=== PATIENT | male | born 1960 | race Two or more races ===

== ENCOUNTER 2024-08-10 12:28 | Inpatient (IN) | payer MEDICAID, OTHER ==
[~2024-08-10] VITALS: Ht 179.1 cm; Wt 100.4 kg
--- NOTE | 2024-08-10 12:39 | ED.PDOC ---
GI ASSESSMENT HPI Comments This is a 63 year old male BIBA presenting to the ED with chief complaint of appendicitis. EMS reports patient is being transferred from [facility] after he had been complaining of abdominal pain for 8 days. EMS relays that an CT Abd/Pel with IV contrast was performed, indicating "acute appendicitis with inflammation and no abscess." EMS states patient was given Zosyn IV in the hospital, patient's WBC was 12.5, and EKG showed sinus bradycardia at 41, but patient normally has a low resting heart rate. Patient notes that he currently has 5/10 left sided abdominal pain at this time. Patient denies any N/V/D, dizziness, fever, chills, or chest pain. Time Seen by MD: 12:34 Reviewed Notes: Nurses Notes, Card Decorator Notes, Medications, Allergies Allergies: Coded Allergies: NO KNOWN ALLERGIES (Unverified , 08/10/24) Information Source: Patient, Emergency Med Personnel Mode of Arrival: EMS Timing: Days Duration: Since onset Prehospital treatment: IVF Quality: Aching Vomitus: None Stool: Normal Severity: Moderate Recent: None Recent Hx of: None Pain Location: LUQ Modifying Factors: Nothing Associated sign and symptoms: Abdominal Pain Past Medical History PAST MEDICAL HISTORY: Denies Surgical History: Denies all surgeries Family History Family History: Reviewed,noncontributory to illness Social History Smoker: Non-Smoker Alcohol: Occasionally Drugs: Denies Drug Use Lives In: Home Constitutional: denies: chills, diaphoresis, fatigue, fever, malaise, sweats, weakness, others EENTM: denies: blurred vision, double vision, ear bleeding, ear discharge, ear drainage, ear pain, ear ringing, eye pain, eye redness, hearing loss, mouth pain, mouth swelling, nasal discharge, nose bleeding, nose congestion, nose pain, photophobia, tearing, throat pain, throat swelling, voice changes, others Respiratory: denies: cough, hemoptysis, orthopnea, SOB at rest, shortness of breath, SOB with excertion, stridor, wheezing, others Cardiovascular: denies: chest pain, dizzy spells, diaphoresis, Dyspnea on exertion, edema, irregular heart beat, left arm pain, lightheadedness, palpitations, PND, syncope, others Gastrointestinal: reports: abdominal pain; denies: abdomen distended, blood streaked bowels, constipated, diarrhea, dysphagia, difficulty swallowing, hematemesis, melena, nausea, poor appetite, poor fluid intake, rectal bleeding, rectal pain, vomiting, others Genitourinary: denies: burning, dysuria, flank pain, frequency, hematuria, incontinence, penile discharge, penile sore, pain, testicle pain, testicle swelling, urgency, others Neurological: denies: dizziness, fainting, headache, left sided numbness, left sided weakness, numbness, paresthesia, pre-existing deficit, right sided numbness, right sided weakness, seizure, speech problems, tingling, tremors, weakness, others Musculoskeletal: denies: back pain, gout, joint pain, joint swelling, muscle pain, muscle stiffness, neck pain, others Integumetry: denies: bruises, change in color, change in hair/nails, dryness, laceration, lesions, lumps, rash, wounds, others Allergic/Immunocompromised: denies: Difficulty Healing, Frequent Infections, Hives, Itching, others Hematologic/Lymphatic: denies: anemia, blood clots, easy bleeding, easy bruising, swollen glands, others Endocrine: denies: excessive hunger, excessive sweating, excessive thirst, excessive urination, flushing, intolerance to cold, intolerance to heat, unexplained weight gain, unexplained weight loss, others Psychiatric: denies: anxiety, bipolar disorder, depression, hopeless, panic disorder, schizophrenia, sleepless, suicidal, others All Other Systems: Reviewed and Negative Physical Exam General Appearance: Moderate Distress HEENT: Normal ENT Inspection, Pharynx Normal, TMs Normal Neck: Full Range of Motion, Non-Tender, Normal, Normal Inspection Respiratory: Chest Non-Tender, Lungs Clear, No Accessory Muscle Use, No Respiratory Distress, Normal Breath Sounds Cardiovascular: No Edema, No JVD, No Murmur, No Gallop, Normal Peripheral Pulses, Regular Rate/Rhythm Breast Exam: Deferred Gastrointestinal: LLQ, No Organomegaly, No Pulsatile Mass, Normal Bowel Sounds, RLQ, Soft, Tenderness Genitalia: Deferred Pelvic: Deferred Rectal: Deferred Extremities: No calf tenderness, Normal capillary refill, Normal inspection, Normal range of motion, Non-tender, No pedal edema Musculoskeletal : Apperance: Normal Neurologic: Alert, 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 Was a procedure done?: No GI differential Dx Differential Diagnosis: Appendicitis, Gastritis/PUD, Electrolyte Imbalance X-Ray, Labs, Meds, VS Vital Signs Date Time Temp Pulse Resp B/P (MAP) Pulse Ox O2 Delivery O2 Flow Rate FiO2 08/10/24 12:36 98.5 41 16 142/91 (108) 96 98.5 Lab Test 08/10/24 13:31 Range/Units White Blood Count 9.2 4.4-10.8 10^3/uL Red Blood Count 5.25 4.5-5.90 10^6/uL Hemoglobin 17.1 13.5-17.5 g/dL Hematocrit 48.8 41.0-53.0 % Mean Corpuscular Volume 92.9 80.0-100.0 fL Mean Corpuscular Hemoglobin 32.5 H 28.0-32.0 pg Mean Corpuscular Hemoglobin Concent 35.0 32.0-36.0 g/dL Red Cell Distribution Width 13.7 11.8-14.3 % Platelet Count 252 140-450 10^3/uL Mean Platelet Volume 8.3 6.9-10.8 fL Neutrophils (%) (Auto) 66.7 37.0-80.0 % Lymphocytes (%) (Auto) 25.0 10.0-50.0 % Monocytes (%) (Auto) 6.1 0.0-12.0 % Eosinophils (%) (Auto) 1.4 0.0-7.0 % Basophils (%) (Auto) 0.8 0.0-2.0 % Neutrophils # (Auto) 6.1 1.6-8.6 10 ^3/uL Lymphocytes # (Auto) 2.3 0.4-5.4 10 ^3/uL Monocytes # (Auto) 0.6 0-1.3 10 ^3/uL Eosinophils # (Auto) 0.1 0-0.8 10 ^3/uL Basophils # (Auto) 0.1 0-0.2 10 ^3/uL Nucleated Red Blood Cells 0.0 % Prothrombin Time 11.5 9.3-11.8 sec Prothrombin Time INR 1.09 0.9-1.15 Activated Partial Thromboplast Time 29.1 24.5-34.5 SEC Sodium Level 143 136-145 mmol/L Potassium Level 4.1 3.5-5.1 mmol/L Chloride Level 107 98-107 mmol/L Carbon Dioxide Level 28 20-31 mmol/L Anion Gap 8 5-15 Blood Urea Nitrogen 16 9-23 mg/dL Creatinine 1.13 0.700-1.30 mg/dL Glomerular Filtration Rate Calc 73 >90 mL/min BUN/Creatinine Ratio 14.2 10.0-20.0 Serum Glucose 83 74-106 mg/dL Calcium Level 9.0 8.7-10.4 mg/dL Current Medications Medications (Trade) Dose Ordered Sig/Mira Route Start Time Stop Time Status Last Admin Sodium Chloride 1,000 ml @ 1,000 mls/hr Q1H ONCE IV 08/10/24 12:45 08/10/24 13:44 DC 08/10/24 14:12 The CBC is within normal limits The chemistry panel is within normal limits The IV Hep-Lock was established The patient was given a 1 L bolus of normal saline The patient had a CAT scan done yesterday which shows acute appendicitis The patient is being started on another dose of Zosyn IV piggyback At this time, we did speak with the surgeon on-call and the patient will be admitted and evaluated for surgery We did discuss the findings with the patient and he is in agreement with the management The patient is admitted Images Reviewed?: Images reviewed and evaluated by me Time of 1ST Reevaluation: 14:36 Reevaluation 1ST: Unchanged Patient Education/Counseling: Diagnosis, Treatment, Prognosis Family Education/Counseling: No Family Present Additional Information Reviewed patient's previous visit(s): None The following tests were ordered, and results were reviewed by me: CBC, BMP, PTPTT Additional information was gathered from interviewing the following independent historian: EMS I reviewed and agreed with the following test results read by other provider: None I discussed treatments and results with medical personnel and: PATIENT Comprehensive systems review obtained and negative except for what is stated in the HPI. SEPSIS Sepsis Screen Physician Orders Npo (Nothing By Mouth) Diet (08/10/24 Lunch) Heplock Iv (08/10/24 ) Vital Signs Date Time Temp Pulse Resp B/P (MAP) Pulse Ox O2 Delivery O2 Flow Rate FiO2 08/10/24 12:36 98.5 41 16 142/91 (108) 96 98.5 Laboratory Tests Test 08/10/24 13:31 White Blood Count 9.2 10^3/uL (4.4-10.8) Medications Medications Dose Ordered Sig/Mira Route Start Time Stop Time Status Last Admin Dose Admin Sodium Chloride 1,000 ml @ 1,000 mls/hr Q1H ONCE IV 08/10/24 12:45 08/10/24 13:44 DC 08/10/24 14:12 Departure 1 Departure Time of Disposition: 14:35 Impression: Primary Impression: Acute abdominal pain Additional Impression: Acute appendicitis Qualified Codes: K35.80 - Unspecified acute appendicitis Disposition: ADMITTED INPATIENT Admit to: Med Surg Condition: Fair Critical Care Note Critical Care Time?: No Stability Stability form required: Yes Unstable for transfer: ED Physician Assesment (Clinical assesment) Heart Score Heart Score: Heart Score Response (Comments) Value History N/A 0 EKG N/A 0 Age N/A 0 Risk Factors N/A 0 Troponin N/A 0 Total 0 I personally scribed for REYNALDO SPARROW MD ([email or web address]) on 08/10/24 at 12:39. Electronically submitted by Dennis Lubin ([email or web address]). I personally scribed for REYNALDO SPARROW MD ([email or web address]) on 08/10/24 at 12:44. Electronically submitted by Dennis Lubin ([email or web address]). REYNALDO SPARROW MD Aug 10, 2024 12:39
[2024-08-10 13:47] LABS: Basophils # (auto) 0.1 10 ^3/uL (0-0.2); Basophils % (auto) 0.8 % (0.0-2.0); Eosinophils # (auto) 0.1 10 ^3/uL (0-0.8); Eosinophils % (auto) 1.4 % (0.0-7.0); Hematocrit 48.8 % (41.0-53.0); Hemoglobin 17.1 g/dL (13.5-17.5); Lymphocytes # (auto) 2.3 10 ^3/uL (0.4-5.4); Mean Corpuscular Hemoglobin 32.5 pg (28.0-32.0); Mean Corpuscular Volume 92.9 fL (80.0-100.0); Monocytes # (auto) 0.6 10 ^3/uL (0-1.3); Monocytes % (auto) 6.1 % (0.0-12.0); Neutrophils # (auto) 6.1 10 ^3/uL (1.6-8.6); Neutrophils % (auto) 66.7 % (37.0-80.0); Platelet Count (auto) 252 10^3/uL (140-450); Red Blood Cells 5.25 10^6/uL (4.5-5.90); Red Cell Distribution Width 13.7 % (11.8-14.3); White Blood Cell 9.2 10^3/uL (4.4-10.8)
[2024-08-10 14:05] LABS: Chloride 107 mmol/L (98-107); INR 1.09 (0.9-1.15); Partial Thromboplastin Time 29.1 SEC (24.5-34.5); Potassium 4.1 mmol/L (3.5-5.1); Prothrombin Time 11.5 sec (9.3-11.8); Sodium 143 mmol/L (136-145)
[2024-08-10 14:06] LABS: Anion Gap 8 (5-15); Carbon Dioxide 28 mmol/L (20-31)
[2024-08-10 14:11] LABS: BUN/Creatinine Ratio 14.2 (10.0-20.0); Blood Urea Nitrogen 16 mg/dL (9-23); Glucose 83 mg/dL (74-106)
[2024-08-10] MEDS: SODIUM CHLORIDE 0.9% 1,000 ML IV ONE (14:12)
[2024-08-10 15:39] LABS: Basophils # (auto) 0 10 ^3/uL (0-0.2); Basophils % (auto) 0.6 % (0.0-2.0); Eosinophils # (auto) 0.1 10 ^3/uL (0-0.8); Eosinophils % (auto) 1.1 % (0.0-7.0); Hematocrit 47.8 % (41.0-53.0); Hemoglobin 16.3 g/dL (13.5-17.5); Lymphocytes # (auto) 1.8 10 ^3/uL (0.4-5.4); Lymphocytes % (auto) 21.5 % (10.0-50.0); Mean Corpuscular Hemoglobin 31.9 pg (28.0-32.0); Mean Corpuscular Hgb Conc. 34.1 g/dL (32.0-36.0); Mean Corpuscular Volume 93.8 fL (80.0-100.0); Monocytes # (auto) 0.5 10 ^3/uL (0-1.3); Neutrophils # (auto) 5.8 10 ^3/uL (1.6-8.6); Neutrophils % (auto) 70.8 % (37.0-80.0); Nucleated Red Blood Cells % 0.1 %; Platelet Count (auto) 231 10^3/uL (140-450); Red Cell Distribution Width 13.3 % (11.8-14.3); White Blood Cell 8.3 10^3/uL (4.4-10.8)
[2024-08-10 15:54] LABS: INR 1.09 (0.9-1.15); Partial Thromboplastin Time 30.2 SEC (24.5-34.5); Prothrombin Time 11.5 sec (9.3-11.8)
[2024-08-10 16:02] LABS: Alanine Aminotransferase 11 U/L (7-40); Alkaline Phosphatase 74 U/L (46-116); Anion Gap 10 (5-15); Aspartate Aminotransferase 17 U/L (<34); BUN/Creatinine Ratio 16.5 (10.0-20.0); Blood Urea Nitrogen 17 mg/dL (9-23); Calcium 8.8 mg/dL (8.7-10.4); Carbon Dioxide 23 mmol/L (20-31); Glucose 76 mg/dL (74-106); Potassium 4.2 mmol/L (3.5-5.1); Sodium 144 mmol/L (136-145); Total Protein 6.6 g/dL (5.7-8.2)
[2024-08-10 16:03] LABS: Bilirubin, Total 0.6 mg/dL (0.2-1.0); Chloride 111 mmol/L (98-107)
--- NOTE | 2024-08-10 16:37 | DVH ---
CHEST RADIOGRAPH Indication: pre op Technique: Single frontal view of the chest was obtained Comparison: None FINDINGS: Lines and Tubes: None Lungs: No focal consolidation. Pleura: No effusion. No pneumothorax. Cardiomediastinal contours: Unremarkable Bones: No acute osseous abnormality. IMPRESSION: 1. No acute cardiopulmonary disease.
--- NOTE | 2024-08-10 16:39 | DVH ---
Exam: CT CT AB PEL WITH IV CON ONLY History: abdominal pain COMPARISON: None Technique: Multidetector spiral CT of the abdomen and pelvis was performed from lung bases to pubic s ymphysis. Intravenous contrast was administered during this examination. Portal venous imaging was obtained. Axial, coronal and sagittal multiplanar reformats were performed by the technologist on a separate workstation. Radiation Dose : 1. Abdomen/Pelvis: CTDIvol 13.27mGy, DLP 793.59 mGy*cm. CONTRAST: Type of contrast: Omnipaque 300 Contrast injected: 100 ml Findings: Lung Bases: No pneumonia. 1.3 cm mass is seen in the left lower lobe. Liver: The liver is normal in size. No focal lesions. Normal hepatic vascular enhancement. Gallbladder and Biliary Tree: Unremarkable Spleen: Unremarkable Pancreas: The pancreas is normal in appearance without focal lesions or abnormal enhancement. Adrenal Glands: Unremarkable Kidneys: No hydronephrosis. Bladder: Unremarkable Bowel: The stomach is grossly normal in appearance. Small bowel and colon are normal in caliber and d istribution. Normal appendix is visualized in the right lower quadrant without findings of appendici tis. Ascites: Absent Lymphadenopathy: No mesenteric, retroperitoneal or periportal lymphadenopathy. Abdominal Wall and Mesentery: Unremarkable. Vasculature: The visualized abdominal aorta is normal in size and caliber. Abdominal and pelvic vess els demonstrate normal enhancement. Pelvic Organs: Unremarkable Musculoskeletal: No aggressive focal bony lesions, acute fractures or dislocation. IMPRESSION: 1. No acute abdominal or pelvic finding. 2. 1.3 cm mass is seen in the left lower lobe. Recommend noncontrast chest CT for further evaluation Radiation optimization: All CT scans at this facility use at least one of these dose optimization eddie hniques: automated exposure control mA and/or kV adjustment per patient size (includes targeted exam s where dose is matched to clinical indication) or iterative reconstruction.
[2024-08-10] MEDS ORDERED: MORPHINE SULFATE INJ 2 MG/ml SYRG IV PRN ×2 (16:45)
[2024-08-10] MEDS ORDERED: NITROGLYCERIN 0.4 MG SL TAB SL PRN (16:45)
[2024-08-10] MEDS ORDERED: ACETAMINOPHEN 325 MG TAB PO PRN (16:45)
[2024-08-10] MEDS ORDERED: ONDANSETRON HCL 4 MG/2 ML VIAL IV PRN (16:45)
--- NOTE | 2024-08-10 16:49 | DVHHP2 ---
History of Present Illness Reason for Visit: Acute abdominal pain History of Present Illness The patient is a 63-year-old male who denies past medical history presented to [facility] ED with complaint of acute abdominal pain. As reported by EMS, patient was transferred from [facility] after he had been complaining of abdominal pain for 8 days. EMS reports that he had abdomen/pelvis CT with IV contrast done at the facility with impression indicating acute appendicitis with inflammation and no abscess and was treated with antibiotic regimen Zosyn IV. Patient was seen and evaluated in the ED, laboratory data shows WBC 9.2, platelets 252, sodium 143, potassium 4.1, BUN 16, creatinine 1.13, glucose 73, calcium 9.0, PT 11.5, INR 1.09, PTT 30.2, blood pressure 142/91, heart rate 42, temperature 98.5 F, O2 saturation 96% on room air. Abdomen/pelvis CT revealing normal appendix visualized in the right lower quadrant without findings of appendicitis, 1.3 cm mass is seen in the left lower lobe. Recommending noncontrast chest CT. Please see medication orders section in the computer. On my assessment, patient denied chest pain, no headache, no dizziness, no shortness of breath, no diarrhea, no nausea, no vomiting, no fever, no chills. Patient was admitted for further evaluation and medical management. Past Medical History Denies past medical history Past Surgical History Denies all surgeries Past Social History The patient lives at home, denies smoking, alcohol or illicit drugs abuse. Review of Systems Constitutional: No: Fever, Chills, Sweats, Weakness, Malaise, Other Eyes: No: Pain, Vision change, Conjunctivae inflammation, Eyelid inflammation, Other, Redness ENT: No: Ear pain, Ear discharge, Nose pain, Nose discharge, Nose congestion, Mouth pain, Mouth swelling, Throat pain, Throat swelling, Other Respiratory: No: Cough, Dry, Shortness of breath, SOB with excertion, Wheezing, Hemoptysis, Pleuritic Pain, Sputum, Wheezing, Other Cardiovascular: No: Chest Pain, Palpitations, Orthopnea, Paroxysmal Noc. Dys pnea, Edema, Lt Headedness, Other Gastrointestinal: Abdominal Pain; No: Nausea, Vomiting, Diarrhea, Constipation, Melena, Hematochezia, Other Genitourinary: No Dysuria, No Frequency, No Incontinence, No Hematuria, No Retention, No Other Musculoskeletal: No: other, neck pain, shoulder pain, arm pain, back pain, hand pain, leg pain, foot pain Skin: No: Rash, Lesions, Jaundice, Bruising, Other Neurological: No: Weakness, Numbness, Incoordination, Change in speech, Confusion, Seizures, Other Allergies: Coded Allergies: NO KNOWN ALLERGIES (Unverified , 08/10/24) Exam Vital Signs Vital Signs Date Time Temp Pulse Resp B/P (MAP) Pulse Ox O2 Delivery O2 Flow Rate FiO2 08/10/24 12:36 98.5 41 16 142/91 (108) 96 98.5 General Appearance: Alert, Oriented X3, Cooperative, No acute distress HEENT: Atraumatic, PERRLA, EOMI, Mucous membr. moist/pink Respiratory: Normal air movement Cardiovascular: Regular rate, Normal S1, Normal S2, No murmurs Abdominal: Normal bowel sounds, Soft, No tenderness, No hepatospenomegaly, No masses Extremities: No clubbing, No cyanosis, No edema, Normal pulses, No tenderness/swelling Skin: No rashes, No breakdown, No significant lesion Neuro: Normal gait, Normal speech, Strength at 5/5 X4 ext, Normal tone, Sensation intact, Cranial nerves 3-12 NL, Reflexes 2+ Psych/Mental Status: Mental status NL, Mood NL Labs/Xrays Labs Test 08/10/24 15:25 Range/Units White Blood Count 8.3 4.4-10.8 10^3/uL Red Blood Count 5.10 4.5-5.90 10^6/uL Hemoglobin 16.3 13.5-17.5 g/dL Hematocrit 47.8 41.0-53.0 % Mean Corpuscular Volume 93.8 80.0-100.0 fL Mean Corpuscular Hemoglobin 31.9 28.0-32.0 pg Mean Corpuscular Hemoglobin Concent 34.1 32.0-36.0 g/dL Red Cell Distribution Width 13.3 11.8-14.3 % Platelet Count 231 140-450 10^3/uL Mean Platelet Volume 8.2 6.9-10.8 fL Neutrophils (%) (Auto) 70.8 37.0-80.0 % Lymphocytes (%) (Auto) 21.5 10.0-50.0 % Monocytes (%) (Auto) 6.0 0.0-12.0 % Eosinophils (%) (Auto) 1.1 0.0-7.0 % Basophils (%) (Auto) 0.6 0.0-2.0 % Neutrophils # (Auto) 5.8 1.6-8.6 10 ^3/uL Lymphocytes # (Auto) 1.8 0.4-5.4 10 ^3/uL Monocytes # (Auto) 0.5 0-1.3 10 ^3/uL Eosinophils # (Auto) 0.1 0-0.8 10 ^3/uL Basophils # (Auto) 0 0-0.2 10 ^3/uL Nucleated Red Blood Cells 0.1 % Prothrombin Time 11.5 9.3-11.8 sec Prothrombin Time INR 1.09 0.9-1.15 Activated Partial Thromboplast Time 30.2 24.5-34.5 SEC Sodium Level 144 136-145 mmol/L Potassium Level 4.2 3.5-5.1 mmol/L Chloride Level 111 H 98-107 mmol/L Carbon Dioxide Level 23 20-31 mmol/L Anion Gap 10 5-15 Blood Urea Nitrogen 17 9-23 mg/dL Creatinine 1.03 0.700-1.30 mg/dL Glomerular Filtration Rate Calc 81 >90 mL/min BUN/Creatinine Ratio 16.5 10.0-20.0 Serum Glucose 76 74-106 mg/dL Calcium Level 8.8 8.7-10.4 mg/dL Total Bilirubin 0.6 0.2-1.0 mg/dL Aspartate Amino Transferase (AST) 17 <34 U/L Alanine Aminotransferase (ALT) 11 7-40 U/L Alkaline Phosphatase 74 46-116 U/L Total Protein 6.6 5.7-8.2 g/dL Albumin 4.0 3.2-4.8 g/dL PATIENT: Judson Goins ACCT: [id number] UNIT: [id number] : 1960 LOC: ER ROOM / BED: / AGE / SEX: 63 / M ADM STATUS: REG ER SERVICE [id number] ORDERING PHYSICIAN: ERICH AZUL MD PROCEDURE(s): ABPLIV - CT AB PEL WITH IV CON ONLY REASON: abdominal pain ORDER NUMBER(s): [id number], ACCESSION NUMBER(s): [id number] Exam: CT CT AB PEL WITH IV CON ONLY History: abdominal pain COMPARISON: None Technique: Multidetector spiral CT of the abdomen and pelvis was performed from lung bases to pubic symphysis. Intravenous contrast was administered during this examination. Portal venous imaging was obtained. Axial, coronal and sagittal multiplanar reformats were performed by the technologist on a separate workstation. Radiation Dose: 1. Abdomen/Pelvis: CTDIvol 13.27mGy, DLP 793.59 mGy*cm. CONTRAST: Type of contrast: Omnipaque 300 Contrast injected: 100 ml Findings: Lung Bases: No pneumonia. 1.3 cm mass is seen in the left lower lobe. Liver: The liver is normal in size. No focal lesions. Normal hepatic vascular enhancement. Gallbladder and Biliary Tree: Unremarkable Spleen: Unremarkable Pancreas: The pancreas is normal in appearance without focal lesions or abnormal enhancement. Adrenal Glands: Unremarkable Kidneys: No hydronephrosis. Bladder: Unremarkable Bowel: The stomach is grossly normal in appearance. Small bowel and colon are normal in caliber and distribution. Normal appendix is visualized in the right lower quadrant without findings of appendicitis. Ascites: Absent Lymphadenopathy: No mesenteric, retroperitoneal or periportal lymphadenopathy. Abdominal Wall and Mesentery: Unremarkable. Vasculature: The visualized abdominal aorta is normal in size and caliber. Abdominal and pelvic vessels demonstrate normal enhancement. Pelvic Organs: Unremarkable Musculoskeletal: No aggressive focal bony lesions, acute fractures or dislocation. IMPRESSION: 1. No acute abdominal or pelvic finding. 2. 1.3 cm mass is seen in the left lower lobe. Recommend noncontrast chest CT for further evaluation ORDERING PHYSICIAN: ERICH AZUL MD PROCEDURE(s): CXRP - CHEST PORTABLE REASON: pre op ORDER NUMBER(s): [id number], ACCESSION NUMBER(s): [id number] CHEST RADIOGRAPH Indication: pre op Technique: Single frontal view of the chest was obtained Comparison: None FINDINGS: Lines and Tubes: None Lungs: No focal consolidation. Pleura: No effusion. No pneumothorax. Cardiomediastinal contours: Unremarkable Bones: No acute osseous abnormality. IMPRESSION: 1. No acute cardiopulmonary disease. Assessment/Plan Assessment/Plan Acute abdominal pain Generalized weakness Plan 1. Admit to [facility] session eats 2. Breathing treatment 3. Pain control management 4. Management of fluids and electrolytes 5. Consultation for hospitalist 6. Diagnostic tests abdomen/pelvis CT 7. DVT prophylaxis on SCDs 8. Repeat labs CBC, CMP in a.m. 9. Continue with current medical management 10. Treatment plan discussed with patient and RN. Patient verbalized ria albarran. Plan discussed with: Patient, Other (RN) My Orders Orders - RUI YOUNG DNP Procedure Category Date Status Time * Surgical Consult CONS 08/10/24 Transmitted Admit ADMIT 08/10/24 Transmitted 16:45 Allergies HOANG 08/10/24 Transmitted 16:45 Code Status CODE 08/10/24 Transmitted 16:45 Oxygen Per Hour RT 08/10/24 Transmitted 16:45 Hydrocodone-Acet PHA 08/10/24 Transmitted 5/325mg Tab ([place] 16:45 Ondansetron Hcl PHA 08/10/24 Transmitted (Zofran) 16:45 Complete Blood Count LAB 08/11/24 Verified 04:00 Comprehensive LAB 08/11/24 Verified Metabolic Panel 04:00 Condition: Serious HOANG 08/10/24 Transmitted 16:45 Acetaminophen Tablet PHA 08/10/24 Transmitted (Tylenol Tablet) 16:45 Bedrest With Bathroom HOANG 08/10/24 Transmitted Privileg 16:45 Morphine Sulfate PHA 08/10/24 Transmitted Injection 16:45 Sequential HOANG 08/10/24 Transmitted Compression Device Nitroglycerin PHA 08/10/24 Transmitted Sublingual (Ntrostat 16:45 Morphine Sulfate PHA 08/10/24 Transmitted Injection 16:45 Stat Ekg For Chest [facility] 08/10/24 Transmitted Pain 16:45 Notify Md Of Changes [facility] 08/10/24 Transmitted From Base 16:45 Oxygen Furnace Operator For [facility] 08/10/24 Transmitted 24 Hours 16:45 Emergency Dysrhythmia [facility] 08/10/24 Transmitted Protocol 16:45 Rhythm Strips Once [facility] 08/10/24 Transmitted Every Shift 16:45 Oxygen By Nasal RT 08/10/24 Transmitted Cannula 16:45 D5w/Sod Chl 0.45% 1/2 PHA 08/10/24 Transmitted NS 16:45 Problem List: (1) Acute abdominal pain (2) Generalized weakness Date of Service: Aug 10, 2024 Billing Provider: RUI YOUNG DNP Common Visit Codes: 23093-DFRHPTO INP/OBS CARE (MOD) RUI YOUNG DNP Aug 10, 2024 16:49
[2024-08-10 20:03] VITALS: PULSE 85; RESP 18; O2SAT 98
[2024-08-10] MEDS ORDERED: IBUP-1455 PO (20:15)
--- NOTE | 2024-08-10 20:33 | DVH ---
CT CHEST WITHOUT CONTRAST: INDICATION: Lung mass COMPARISON: None CONTRAST: IV contrast: None TECHNIQUE: Spiral CT performed from the pulmonary apex to the base. Dose reduction technique was used on this scan by utilizing automated exposure control, adjustment of the mA and/or kV according to the patient size. DICOM format image data available to non-affiliated external healthcare facilities or entities on a secure, media free, reciprocally searchable basis wit h patient authorization for at least a 12 month period after the study. FINDINGS: Community Product Specialist: Unremarkable There is a 1.9x 1.8 cm ovoid- branching lesion within the left lower lobe. No additional lesions iden tified. There is minimal bronchial wall thickening.. Thyroid gland and thoracic inlet are within normal limits. No enlarged intrathoracic lymph nodes. Mil d bilateral chamber enlargement. Small hiatal hernia. Vicarious excretion of contrast into the gallbladder. There is contrast material within the renal collecting system. The bones are unremarkable. IMPRESSION: 1. 1.9 cm oval- branching lesion within the left lower lobe favored to represent mucoid impaction. Ne oplasm is not excluded. Recommend follow-up chest CT in 8 weeks.
[2024-08-10 21:19] VITALS: BP 154/69; PULSE 40; RESP 18; TEMP 98.1; O2SAT 96
[2024-08-10 22:20] VITALS: BP 164/98; PULSE 47; RESP 19; TEMP 98.4; O2SAT 96
[2024-08-11] VITALS (8 sets, daily range): BP systolic 119–160; BP diastolic 66–95; PULSE 42–60; RESP 17–20; TEMP 97.7–98.4; O2SAT 93–98
[2024-08-11] MEDS: hydrALAZINE HCL 20 MG/ML VL IV ONE (01:29)
[2024-08-11] MEDS: D5W/SOD CHL 0.45% 1,000 ML IV SCH (05:18)
[2024-08-11 06:03] LABS: Basophils # (auto) 0.1 10 ^3/uL (0-0.2); Basophils % (auto) 0.5 % (0.0-2.0); Eosinophils # (auto) 0.2 10 ^3/uL (0-0.8); Eosinophils % (auto) 1.8 % (0.0-7.0); Hemoglobin 16.6 g/dL (13.5-17.5); Lymphocytes # (auto) 2.2 10 ^3/uL (0.4-5.4); Lymphocytes % (auto) 20.9 % (10.0-50.0); Mean Corpuscular Hemoglobin 32.2 pg (28.0-32.0); Mean Corpuscular Hgb Conc. 34.6 g/dL (32.0-36.0); Monocytes # (auto) 0.6 10 ^3/uL (0-1.3); Monocytes % (auto) 6.1 % (0.0-12.0); Neutrophils # (auto) 7.3 10 ^3/uL (1.6-8.6); Neutrophils % (auto) 70.7 % (37.0-80.0); Nucleated Red Blood Cells % 0.2 %; Platelet Count (auto) 236 10^3/uL (140-450); Red Blood Cells 5.16 10^6/uL (4.5-5.90); Red Cell Distribution Width 13.5 % (11.8-14.3); White Blood Cell 10.3 10^3/uL (4.4-10.8)
[2024-08-11 06:21] LABS: Alanine Aminotransferase 10 U/L (7-40); Albumin 3.9 g/dL (3.2-4.8); Alkaline Phosphatase 75 U/L (46-116); Anion Gap 9 (5-15); Aspartate Aminotransferase 17 U/L (<34); BUN/Creatinine Ratio 13.3 (10.0-20.0); Bilirubin, Total 0.7 mg/dL (0.2-1.0); Blood Urea Nitrogen 13 mg/dL (9-23); Calcium 8.8 mg/dL (8.7-10.4); Carbon Dioxide 23 mmol/L (20-31); Glucose 77 mg/dL (74-106); Sodium 140 mmol/L (136-145); Total Protein 6.7 g/dL (5.7-8.2)
[2024-08-11 06:24] LABS: Chloride 108 mmol/L (98-107)
[2024-08-11] MEDS ORDERED: PROPOFOL 10 MG/ML 20 ML IV ONE (06:52)
[2024-08-11] MEDS ORDERED: GLYCOPYRROLATE 0.2 MG/ML 1ML VIAL ONE (06:52)
[2024-08-11] MEDS ORDERED: ROCURONIUM 10MG/ML 10ML VIAL IV ONE (06:52)
[2024-08-11] MEDS ORDERED: LIDOCAINE 2% (LOCAL ANESTH.) PF 5ml SDV ONE (06:53)
[2024-08-11] MEDS ORDERED: SUGAMMADEX 200mg/2ml Vial (100MG/ML) IV ONE (06:53)
[2024-08-11] MEDS ORDERED: DexAMETHasone SOD PHOS 10MG/1ML VIAL INJ ONE (06:53)
[2024-08-11] MEDS ORDERED: ONDANSETRON HCL 4 MG/2 ML VIAL ONE (06:53)
[2024-08-11] MEDS ORDERED: KETOROLAC TROMETH 30 MG/ML 1ML VIAL ONE (06:53)
[2024-08-11] MEDS ORDERED: fentaNYL CITRATE 100 MCG/2 ML VL ONE (06:55)
[2024-08-11] MEDS ORDERED: KETAMINE 50mg/ML 1ml syringe ONE (06:55)
[2024-08-11] MEDS ORDERED: MIDAZOLAM HCL 2MG/2ML 2ml VIAL (1mg/ml) ONE (07:07)
[2024-08-11] MEDS: ceFAZolin 2 GM/D5W50ml 50 ML IV ONE (07:30)
[2024-08-11] MEDS ORDERED: HYDROmorphone HCL 2 MG/ML VL/or syr ONE (07:39)
--- NOTE | 2024-08-11 07:40 | DVHINCON2 ---
Date of service: Aug 11, 2024 Family History: Patient reports no known family medical history. Allergies: Coded Allergies: NO KNOWN ALLERGIES (Unverified , 08/10/24) Home Meds Reported Medications Ibuprofen Micronized (Ibuprofen) 800 Mg Tab, 1 TAB PO DAILYPRN PRN for pain 08/10/24 Current Medications Current Medications Medications (Trade) Dose Ordered Sig/Mira Route PRN Reason Start Time Stop Time Status Last Admin Acetaminophen/ Hydrocodone Bitart ([place] 5/325MG Tab) 1 tab Q4HP PRN PO MODERATE PAIN (4-6 PAIN SCALE) 08/10/24 16:45 Ondansetron HCl (Zofran) 4 mg Q4HP PRN IV NAUSEA / VOMITING 08/10/24 16:45 Acetaminophen (Tylenol Tablet) 650 mg Q6HP PRN PO PAIN SCALE 1-3 OR TEMP>100.4 08/10/24 16:45 Morphine Sulfate 2 mg Q4HPRN PRN IV SEVERE PAIN (7-10 PAIN SCALE) 08/10/24 16:45 Nitroglycerin (Ntrostat Sublingual) 0.4 mg Q5MINP PRN SL FOR CHEST PAIN 08/10/24 16:45 Morphine Sulfate 2 mg Q30M PRN IV FOR CHEST PAIN 08/10/24 16:45 Dextrose/Sodium Chloride 1,000 ml @ 75 mls/hr [id number] IV 08/10/24 16:45 08/11/24 06:05 Tamsulosin HCl (Flomax) 0.4 mg QPM PO 08/11/24 18:00 Vital Signs Vital Signs Date Time Temp Pulse Resp B/P (MAP) Pulse Ox O2 Delivery O2 Flow Rate FiO2 08/11/24 05:00 98.1 54 20 135/70 (91) 97 98.1 08/10/24 20:03 Room Air* 0 21 Labs/Diagnostic Data Labs Test 08/11/24 05:27 08/10/24 15:25 Range/Units White Blood Count 10.3 4.4-10.8 10^3/uL Red Blood Count 5.16 4.5-5.90 10^6/uL Hemoglobin 16.6 13.5-17.5 g/dL Hematocrit 48.0 41.0-53.0 % Mean Corpuscular Volume 93.0 80.0-100.0 fL Mean Corpuscular Hemoglobin 32.2 H 28.0-32.0 pg Mean Corpuscular Hemoglobin Concent 34.6 32.0-36.0 g/dL Red Cell Distribution Width 13.5 11.8-14.3 % Platelet Count 236 140-450 10^3/uL Mean Platelet Volume 8.2 6.9-10.8 fL Neutrophils (%) (Auto) 70.7 37.0-80.0 % Lymphocytes (%) (Auto) 20.9 10.0-50.0 % Monocytes (%) (Auto) 6.1 0.0-12.0 % Eosinophils (%) (Auto) 1.8 0.0-7.0 % Basophils (%) (Auto) 0.5 0.0-2.0 % Neutrophils # (Auto) 7.3 1.6-8.6 10 ^3/uL Lymphocytes # (Auto) 2.2 0.4-5.4 10 ^3/uL Monocytes # (Auto) 0.6 0-1.3 10 ^3/uL Eosinophils # (Auto) 0.2 0-0.8 10 ^3/uL Basophils # (Auto) 0.1 0-0.2 10 ^3/uL Nucleated Red Blood Cells 0.2 % Sodium Level 140 136-145 mmol/L Potassium Level 4.0 3.5-5.1 mmol/L Chloride Level 108 H 98-107 mmol/L Carbon Dioxide Level 23 20-31 mmol/L Anion Gap 9 5-15 Blood Urea Nitrogen 13 9-23 mg/dL Creatinine 0.98 0.700-1.30 mg/dL Glomerular Filtration Rate Calc 86 >90 mL/min BUN/Creatinine Ratio 13.3 10.0-20.0 Serum Glucose 77 74-106 mg/dL Calcium Level 8.8 8.7-10.4 mg/dL Total Bilirubin 0.7 0.2-1.0 mg/dL Aspartate Amino Transferase (AST) 17 <34 U/L Alanine Aminotransferase (ALT) 10 7-40 U/L Alkaline Phosphatase 75 46-116 U/L Total Protein 6.7 5.7-8.2 g/dL Albumin 3.9 3.2-4.8 g/dL Prothrombin Time 11.5 9.3-11.8 sec Prothrombin Time INR 1.09 0.9-1.15 Activated Partial Thromboplast Time 30.2 24.5-34.5 SEC Assessment PATIENT EVALUATED IN THE EMERGENCY ROOM YESTERDAY AND RE EVALUATED THIS AM, HE WAS REF. FROM ANOTHER HOSPITAL AND BROUGHT IN BY AMBULANCE WITH C/O SEVERE ABDOMINAL PAIN IN THE RIGHT SIDE OF HIS ABDOMEN. NO PRIOR ABDOMINAL OPERATIONS, PHYSICAL EXAMINATION: EXQUISITELY TENDER RIGHT LOWER ABDOMEN WOITH REBOUND TEN DERNESS, POSITIVE MC KATHY;S TENDERNESS AND REBOUND, POSITIVE OBTURATOR AND PSOAS SIGN. EXAMINATION CONSISTENT WITH APPENDICITIS. OPERATION RISKS AND COMPLICATIONS EXPLAINED IN DETAIL Plan discussed with: Patient, Other ERICH AZUL MD Aug 11, 2024 07:40
[2024-08-11] MEDS: BUPIVACAINE HCL 0.25% P/F 10 ML VIAL ONE (08:05)
[2024-08-11] MEDS: LIDOCAINE W/ EPINEPHRINE 1% 20ML VIAL ONE (08:05)
--- NOTE | 2024-08-11 08:35 | DVHOP ---
DATE OF SURGERY: 08/11/2024 PREOPERATIVE DIAGNOSIS: Appendicitis. POSTOPERATIVE DIAGNOSIS: Appendicitis. SURGEON: Qamar Dallas MD RESIDENT MANAGER: Alejandro Mendieta NP ANESTHESIA: General endotracheal, Dr. Booth. PROCEDURES: * Laparoscopy. * Laparoscopic appendectomy DESCRIPTION OF PROCEDURE: Under general endotracheal anesthesia with the patient's skin prepped and draped, supraumbilical incision was made and Veress needle inserted into the peritoneal cavity by the hanging drop technique in order to establish pneumoperitoneum to 15 mmHg pressure by insufflation with carbon dioxide. With the abdomen fully distended, the needle was removed and replaced with a 5 mm trocar port through which a 0-degree viewing laparoscope was inserted and under direct vision additional 5 mm port was inserted through the subxiphoid skin and 10 mm port through the infraumbilical skin in the midline. Instrumentation was then introduced into the peritoneal cavity and laparoscopy was performed. Laparoscopy was hampered by the patient's obesity. However, no obvious unexpected pathology was encountered. The appendix was found to be in the pelvis, densely adherent to surrounding viscera and to the peritoneum. It was mobilized by blunt and sharp dissection. The appendix was then placed on tension and traced to its confluence with the cecum. At the base of the appendix, it was crossclamped and divided with an Endo CORTEZ stapler equipped with vascular danielle. The fully mobilized appendix was then placed into a specimen extraction bag and removed from the peritoneal cavity through the 10 mm port site. The patient's right lower quadrant was profusely irrigated. Irrigant was aspirated. Meticulous inspection for hemostasis was conducted and was found to be complete. At the termination of the procedure, there was no evidence of ongoing bleeding from either the appendicectomy site or from the port sites. Instrumentation was withdrawn. Pneumoperitoneum was evacuated. Fascial defect closed using 0 Vicryl. 2-0 Monocryl sutures, Dermabond glue, and Steri-Strips were used for approximation of the skin edges. The patient remained stable throughout the procedure, left the operating room following an accurate needle and sponge counts. His family were thoroughly informed at [phone]. MD PIERCE Ruiz/LYLY TID: [id number] RECEIPT: [id number]
[2024-08-11] MEDS ORDERED: HYDROmorphone HCL 2 MG/ML VL/or syr IV PRN (08:45)
--- NOTE | 2024-08-11 09:06 | DVH ---
EXAM: XY CHEST PORTABLE HISTORY: post op COMPARISON: XY CHEST PORTABLE on DOS: 08/10/24, CT scan of the chest dated 08/10/2024 TECHNIQUE: Portable AP view of the chest was performed. FINDINGS: There is new interstitial prominence, greatest centrally. No consolidative infiltrates or pneumothora x. Left lower lobe noncalcified pulmonary nodule seen on recent CT scan of the chest is not appreciat ed on the current study. The heart is enlarged. IMPRESSION: Cardiomegaly and interstitial prominence suggestive of CHF.
--- NOTE | 2024-08-11 09:40 | DVH ---
SOFT TISSUE HEAD AND NECK ULTRASOUND: HISTORY: Pain COMPARISON: None TECHNIQUE: Real-time grayscale sonographic evaluation of the left neck in the area of interest [facility]. FINDINGS: There is no mass, inflammatory change, or fluid collection in the area of interest within t left neck. IMPRESSION: 1. No sonographic findings within the left neck of the area of interest
--- NOTE | 2024-08-11 13:00 | DVHPN2 ---
Reviewed: Care Plan, H&P, Labs, Medications, Previous Orders, Radiology Changes from previous H/P or p: No Changes General: Per HPI Eyes: No Pain, No Vision change, No Conjunctivae inflammation, No Eyelid inflammation, No Other, No Redness ENT: No Ear pain, No Ear discharge, No Nose pain, No Nose discharge, No Nose congestion, No Mouth pain, No Mouth swelling, No Throat pain, No Throat swelling, No Other Cardiovascular: No Chest Pain, No Palpitations, No Orthopnea, No Paroxysmal Noc. Dyspnea, No Edema, No Lt Headedness, No Other Respiratory: No Cough, No Dry, No Shortness of breath, No SOB with excertion, No Wheezing, No Hemoptysis, No Pleuritic Pain, No Sputum, No Other Gastrointestinal: No Nausea, No Vomiting; Abdominal Pain; No Diarrhea, No Constipation, No Melena, No Hematochezia, No Other Genitourinary: No Dysuria, No Frequency, No Incontinence, No Hematuria, No Retention, No Other Musculoskeletal: No other, No neck pain, No shoulder pain, No arm pain, No back pain, No hand pain, No leg pain, No foot pain Skin: No Rash, No Lesions, No Jaundice, No Bruising, No Other Objective Vitals Vital Signs Date Time Temp Pulse Resp B/P (MAP) Pulse Ox O2 Delivery O2 Flow Rate FiO2 08/11/24 12:42 98.4 45 18 136/66 (89) 95 98.4 08/11/24 09:24 Nasal Cannula 2.0 97 Intake/Output Intake and Output 08/11/24 07:00 Intake Total 100 ml Balance 100 ml Intake Oral 0 ml IV Total 100 ml # Voids 3 General Appearance: Alert, Oriented X3, Cooperative HEENT: Atraumatic Medications Current Medications Medications Dose Ordered Sig/Mira Route Start Time Stop Time Status Last Admin Dose Admin Acetaminophen/ Hydrocodone Bitart 1 tab Q4HP PRN PO 08/10/24 16:45 Ondansetron HCl 4 mg Q4HP PRN IV 08/10/24 16:45 Acetaminophen 650 mg Q6HP PRN PO 08/10/24 16:45 Morphine Sulfate 2 mg Q4HPRN PRN IV 08/10/24 16:45 Nitroglycerin 0.4 mg Q5MINP PRN SL 08/10/24 16:45 Morphine Sulfate 2 mg Q30M PRN IV 08/10/24 16:45 Dextrose/Sodium Chloride 1,000 ml @ 75 mls/hr [id number] IV 08/10/24 16:45 08/11/24 06:05 75 MLS/HR Tamsulosin HCl 0.4 mg QPM PO 08/11/24 18:00 Cefazolin Sodium 50 ml @ 100 mls/hr Q8HR IV 08/11/24 14:00 Metronidazole 100 ml @ 100 mls/hr Q8HR IV 08/11/24 14:00 Laboratory Results Laboratory Tests 08/11/24 05:27 Chemistry Test 08/10/24 13:31 08/10/24 15:25 08/11/24 05:27 Calcium Level 9.0 mg/dL (8.7-10.4) 8.8 mg/dL (8.7-10.4) 8.8 mg/dL (8.7-10.4) Albumin 4.0 g/dL (3.2-4.8) 3.9 g/dL (3.2-4.8) Total Protein 6.6 g/dL (5.7-8.2) 6.7 g/dL (5.7-8.2) Coagulation Test 08/10/24 13:31 08/10/24 15:25 Prothrombin Time 11.5 sec (9.3-11.8) 11.5 sec (9.3-11.8) Prothrombin Time INR 1.09 (0.9-1.15) 1.09 (0.9-1.15) Activated Partial Thromboplast Time 29.1 SEC (24.5-34.5) 30.2 SEC (24.5-34.5) LFT Test 08/10/24 15:25 08/11/24 05:27 Alanine Aminotransferase (ALT) 11 U/L (7-40) 10 U/L (7-40) Alkaline Phosphatase 74 U/L (46-116) 75 U/L (46-116) Aspartate Amino Transferase (AST) 17 U/L (<34) 17 U/L (<34) Total Bilirubin 0.6 mg/dL (0.2-1.0) 0.7 mg/dL (0.2-1.0) Labs and/or images reviewed: Labs reviewed by me, Image(s) reviewed by me Assessment/Plan Assessment/Plan The patient is a 63-year-old male who denies past medical history presented to [facility] ED with complaint of acute abdominal pain. As reported by EMS, patient was transferred from [facility] after he had been complaining of abdominal pain for 8 days. EMS reports that he had abdomen/pelvis CT with IV contrast done at the facility with impression indicating acute appendicitis with inflammation and no abscess and was treated with antibiotic regimen Zosyn IV. Patient was seen and evaluated in the ED, laboratory data shows WBC 9.2, platelets 252, sodium 143, potassium 4.1, BUN 16, creatinine 1.13, glucose 73, calcium 9.0, PT 11.5, INR 1.09, PTT 30.2, blood pressure 142/91, heart rate 42, temperature 98.5 F, O2 saturation 96% on room air. Abdomen/pelvis CT revealing normal appendix visualized in the right lower quadrant without findings of appendicitis, 1.3 cm mass is seen in the left lower lobe. Recommending noncontrast chest CT. Please see medication orders section in the computer. On my assessment, patient denied chest pain, no headache, no dizziness, no shortness of breath, no diarrhea, no nausea, no vomiting, no fever, no chills. Patient was admitted for further evaluation and medical management. Acute abdominal pain Generalized weakness s/p Laparoscopic appendectomy close monitoring for now Plan discussed with: Patient Date of Service: Aug 11, 2024 Billing Provider: JALEN ZHONG DO Common Visit Codes: [id number] INP/OBS CARE(HIGH) JALEN ZHONG DO Aug 11, 2024 13:00
[2024-08-11] MEDS: ceFAZolin 1GM/50ML 50 ML IV SCH (14:52)
[2024-08-11] MEDS: ONDANSETRON HCL 4 MG/2 ML VIAL IV ONE (15:46)
[2024-08-11] MEDS: metroNIDAZOLE 500MG/100ML 100 ML IV SCH (15:47)
[2024-08-11] MEDS: HYDROcodone-ACET 5/325MG TAB PO PRN (15:56)
[2024-08-11] MEDS: TAMSULOSIN HYDROCHLORIDE 0.4 MG CAP PO SCH (18:11)
[2024-08-12 01:00] VITALS: BP 124/61; PULSE 54; RESP 17; TEMP 97.6; O2SAT 96
[2024-08-12 05:00] VITALS: BP 121/54; PULSE 49; RESP 16; TEMP 97.7; O2SAT 93
[2024-08-12 06:05] LABS: Basophils # (auto) 0 10 ^3/uL (0-0.2); Basophils % (auto) 0.1 % (0.0-2.0); Eosinophils # (auto) 0 10 ^3/uL (0-0.8); Eosinophils % (auto) 0.1 % (0.0-7.0); Hemoglobin 14.2 g/dL (13.5-17.5); Lymphocytes % (auto) 6.8 % (10.0-50.0); Mean Corpuscular Hgb Conc. 34.7 g/dL (32.0-36.0); Mean Corpuscular Volume 92.1 fL (80.0-100.0); Monocytes # (auto) 0.8 10 ^3/uL (0-1.3); Monocytes % (auto) 5.4 % (0.0-12.0); Neutrophils # (auto) 12.4 10 ^3/uL (1.6-8.6); Neutrophils % (auto) 87.6 % (37.0-80.0); Platelet Count (auto) 240 10^3/uL (140-450); Red Blood Cells 4.45 10^6/uL (4.5-5.90); Red Cell Distribution Width 12.9 % (11.8-14.3); White Blood Cell 14.1 10^3/uL (4.4-10.8)
[2024-08-12 08:00] VITALS: PULSE 58; RESP 18; O2SAT 98
[2024-08-12 08:51] VITALS: BP 119/61; PULSE 58; RESP 18; TEMP 98; O2SAT 97
[2024-08-12 12:43] VITALS: BP 127/60; PULSE 50; RESP 19; TEMP 97.9; O2SAT 95
[2024-08-12] MEDS ORDERED: TAMS-35 PO (13:31)
[2024-08-12] MEDS ORDERED: CEPH250C PO (13:31)
--- NOTE | 2024-08-22 20:38 | DVHDS2 ---
Discharge Summary Date of Admission Aug 10, 2024 at 16:45 Date of Discharge: Aug 12, 2024 Labs/Diagnostic Data: Laboratory Results Test 08/12/24 05:13 08/11/24 05:27 08/10/24 15:25 White Blood Count 14.1 10^3/uL (4.4-10.8) Red Blood Count 4.45 10^6/uL (4.5-5.90) Hemoglobin 14.2 g/dL (13.5-17.5) Hematocrit 41.0 % (41.0-53.0) Mean Corpuscular Volume 92.1 fL (80.0-100.0) Mean Corpuscular Hemoglobin 32.0 pg (28.0-32.0) Mean Corpuscular Hemoglobin Concent 34.7 g/dL (32.0-36.0) Red Cell Distribution Width 12.9 % (11.8-14.3) Platelet Count 240 10^3/uL (140-450) Mean Platelet Volume 8.3 fL (6.9-10.8) Neutrophils (%) (Auto) 87.6 % (37.0-80.0) Lymphocytes (%) (Auto) 6.8 % (10.0-50.0) Monocytes (%) (Auto) 5.4 % (0.0-12.0) Eosinophils (%) (Auto) 0.1 % (0.0-7.0) Basophils (%) (Auto) 0.1 % (0.0-2.0) Neutrophils # (Auto) 12.4 10 ^3/uL (1.6-8.6) Lymphocytes # (Auto) 1.0 10 ^3/uL (0.4-5.4) Monocytes # (Auto) 0.8 10 ^3/uL (0-1.3) Eosinophils # (Auto) 0 10 ^3/uL (0-0.8) Basophils # (Auto) 0 10 ^3/uL (0-0.2) Nucleated Red Blood Cells 0.0 % Sodium Level 140 mmol/L (136-145) Potassium Level 4.0 mmol/L (3.5-5.1) Chloride Level 108 mmol/L (98-107) Carbon Dioxide Level 23 mmol/L (20-31) Anion Gap 9 (5-15) Blood Urea Nitrogen 13 mg/dL (9-23) Creatinine 0.98 mg/dL (0.700-1.30) Glomerular Filtration Rate Calc 86 mL/min (>90) BUN/Creatinine Ratio 13.3 (10.0-20.0) Serum Glucose 77 mg/dL (74-106) Calcium Level 8.8 mg/dL (8.7-10.4) Total Bilirubin 0.7 mg/dL (0.2-1.0) Aspartate Amino Transferase (AST) 17 U/L (<34) Alanine Aminotransferase (ALT) 10 U/L (7-40) Alkaline Phosphatase 75 U/L (46-116) Total Protein 6.7 g/dL (5.7-8.2) Albumin 3.9 g/dL (3.2-4.8) Prothrombin Time 11.5 sec (9.3-11.8) Prothrombin Time INR 1.09 (0.9-1.15) Activated Partial Thromboplast Time 30.2 SEC (24.5-34.5) Other Laboratory Tests 08/12/24 05:13 08/11/24 05:27 Brief Hx & Hospital Course: The patient is a 63-year-old male who denies past medical history presented to [facility] ED with complaint of acute abdominal pain. As reported by EMS, patient was transferred from [facility] after he had been complaining of abdominal pain for 8 days. EMS reports that he had abdomen/pelvis CT with IV contrast done at the facility with impression indicating acute appendicitis with inflammation and no abscess and was treated with antibiotic regimen Zosyn IV. Patient was seen and evaluated in the ED, laboratory data shows WBC 9.2, platelets 252, sodium 143, potassium 4.1, BUN 16, creatinine 1.13, glucose 73, calcium 9.0, PT 11.5, INR 1.09, PTT 30.2, blood pressure 142/91, heart rate 42, temperature 98.5 F, O2 saturation 96% on room air. Abdomen/pelvis CT revealing normal appendix visualized in the right lower quadrant without findings of appendicitis, 1.3 cm mass is seen in the left lower lobe. Recommending noncontrast chest CT. Please see medication orders section in the computer. On my assessment, patient denied chest pain, no headache, no dizziness, no shortness of breath, no diarrhea, no nausea, no vomiting, no fever, no chills. Patient was admitted for further evaluation and medical management. Acute abdominal pain Generalized weakness s/p Laparoscopic appendectomy cleared by Gen Surg for d/c Condition at Discharge: Fair Final Diagnosis/Problems List see above Discharge Disposition: Home Discharge Instruct/Medications Diet: Cardiac 2g Na,low cholest Activity: No Restrictions, As Tolerated Scheduled Cephalexin (Keflex Capsule), 2 CAP PO BID Tamsulosin Hcl (Flomax), 0.4 MG PO QPM Scheduled PRN Ibuprofen Micronized (Ibuprofen), 1 TAB PO DAILYPRN PRN for pain, (Reported) Discharge Statement: "Patient was advised to return to the ER or call 911 if any headaches, dizziness, shortness of breath, chest pain, abdominal pain, bleeding, fevers, or worsening of medical condition. Patient was counseled about treatment plan, medications, possible side effects, patientverbalized understanding. All questions were answered to the best of my ability. This discharge took greater then 30 minutes in planning, reviewing documentation, counseling the patient, and discussing with other team members." ASSESSMENT ASSESSMENT Assessment Date of Service: Aug 12, 2024 Billing Provider: JALEN ZHONG DO Common Visit Codes: [id number] DISCH DAY >30min JALEN ZHONG DO Aug 22, 2024 20:38
== END 2024-08-12 18:30 | disposition home or self-care (01) | DRG 234 ==
LOC: ER 12:28 → EDBD 12:28 → OVERFLOW 16:45 → WEST WING 22:20
PROVIDERS: ADMIT Internal Medicine; ATTEND Internal Medicine
PROC: 0DTJ4ZZ Resection of Appendix, Percutaneous Endoscopic Approach (ICD-10-PCS; principal; 2024-08-11 07:17)
DX: K35.80 Unspecified acute appendicitis (principal); K57.20 Diverticulitis of large intestine with perforation and abscess without bleeding; E66.9 Obesity, unspecified; Z68.29 Body mass index [BMI] 29.0-29.9, adult; Z79.899 Other long term (current) drug therapy; K57.30 Diverticulosis of large intestine without perforation or abscess without bleeding
CPT/HCPCS: 36415; 71045; 71250; 74177; 76536; 80048; 80053; 85025; 85610; 85730; 86850; 86900; 86901; 96360; G0378; J1100; J1885; J2003; J2250; J2405; J2704; J3490